=== PATIENT | male | born 1990 | race Caucasian/White ===

== ENCOUNTER 2017-04-02 13:01 | Emergency (ER) | payer BC ==
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
[2017-04-02] MEDS ORDERED: Bacitracin pkt 1 gm Pkt TP ONE (14:01)
[2017-04-02] MEDS ORDERED: Bacitracin pkt 1 gm Pkt TP STA (14:04)
== END 2017-04-02 15:08 | disposition home or self-care (01) ==
LOC: ER 13:01
DX: S50.812A Abrasion of left forearm, initial encounter (principal); S50.811A Abrasion of right forearm, initial encounter; S93.402A Sprain of unspecified ligament of left ankle, initial encounter; V87.8XXA Person injured in other specified noncollision transport accidents involving motor vehicle (traffic), initial encounter; Y93.55 Activity, bike riding; Y92.488 Other paved roadways as the place of occurrence of the external cause; Y99.8 Other external cause status
CPT/HCPCS: 99283; 90715; Z7610; Z7502